=== PATIENT | female | born 1955 | race Caucasian/White ===

== ENCOUNTER → 2018-08-16 | Day surgery (SDC) | payer BC ==
[~2018-08-16] MED LIST: BUPIVACAINE HCL 0.5% INJ 30 ML VIAL INJ ONE; CEFAZOLIN SOD 1 GM/NS 50ML 50 ML IV ONE; CLARITIN-D 241 EACH PO; DESFLURANE 240 ML BTL INH ONE; DEXAMETHASONE SOD PHOS INJ 4 MG/ML VIAL ONE; FENTANYL CITRATE/PF 100MCG/2 ML INJ ONE; KETOROLAC TROMETHAMINE 30 MG/ML VIAL ONE; LIDOCAINE HCL 2% LOCAL INJ 5 ML SDV VIAL INJ ONE; MULTIVITAMINS1 EAC7 PO; ONDANSETRON HCL INJ 2MG/ML 2ML 2 MG/ML VIAL ONE; PROPOFOL IV EMULSION 10 MG/ML 20 ML VIAL ONE; SUDAFED 12 HOU120 MG PO
--- OUTSIDE RECORDS SUMMARY | 2018-08-16 05:47 | XMS REPORT | Clinical Summary ---
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 Active nortriptyline (PAMELOR) 0 10 MG capsule 7 Active rosuvastatin (CRESTOR) 10 Take 10 mg by 0 MG tablet mouth every morning. Active fexofenadine (JACOB) Take 180 mg 0 180 MG tablet by mouth every morning. 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 Office Visit Orthopedic Surgery Srikanth Douglass II, MD History of hip replacement, total, left (Primary Dx); Status post revision of total hip replacement; Peroneal nerve lesion, left 10/23/2017 Office Visit Orthopedic Surgery after 08/15/2017 Family History Medical History Relation Name Comments Deep vein thrombosis Father Stroke Father Arthritis Mother Relation Name Status Comments Father Mother Alive Social History Date Tobacco Use Types Packs/Day Years Used Never Smoker Smokeless Tobacco: Never Used Alcohol Use Drinks/Week oz/Week Comments Yes occasional Sex Assigned at Date Recorded Not on file Industry Job Start Date Occupation Not on file Not on file Not on file Travel End Travel History Travel Start No recent travel history available. Last Filed Vital Signs Not on file Plan of Treatment Health Maintenance Due Date Last Done Comments BREAST CANCER SCREENING 2005 COLON CANCER SCREENING 2005 SHINGLES VACCINES (#1) 2005 INFLUENZA VACCINE 10/24/2018 02/09/2017, 01/05/2016, 01/07/2015, Additional history exists Implants Device Identifier Shelf Expiration Date Model / Serial / Lot Implanted Type Area Manufactur er [id number] / / Screw Bone Canc 6.5x15mm [place] - Hip Joint Left: Hip DEPUY [id number] Implants ORTHO Implanted: Qty: 1 on 03/01/2017 by Srikanth Douglass II, MD [id number] / / Screw Bone Canc 6.5x30mm - Hip Joint Left: Hip DEPUY [id number] Implants ORTHO Implanted: Qty: 1 on 03/01/2017 by Srikanth Douglass II, MD [id number] / / Screw Bone Canc 6.5x20mm [place] - Hip Joint Left: Hip DEPUY [id number] Implants ORTHO-KNEE Implanted: Qty: 1 on 03/01/2017 by Srikanth Sosa II, MD 12/23/2025 [id number] / / [id number] Shell Actblr Mul-Hl W/ Gripton 50mm Hip Joint Left: Hip DEPUY [place] - [id number] Implants ORTHO-KNEE Implanted: Qty: 1 on 03/01/2017 by Srikanth Sosa II, MD 01/16/2026 [id number] / / [id number] Head Fml 03/08 Tprd 32mm +0mm Hip Joint Left: Hip LEWIS AND [employer] - [id number] Implants NEPHEW Implanted: Qty: 1 on 03/01/2017 by ORTHOPEDIC Srikanth Douglass II, MD S 12/23/2021 [id number] / / [id number] [place] Altrx Neutral 32mm X 50mm IPM Left: Hip DEPUY - [id number] IMPLANT ORTHOPAEDI Implanted: Qty: 1 on 03/01/2017 by [employer] Srikanth Douglass II, MD Procedures Comments Procedure Name Priority Date/Time Associated Diagnosis XR HIP 2-3 VIEWS LEFT Routine 10/23/2017 History of hip 4:16 PM CDT replacement, total, left after 08/15/2017 Results * XR Hip 2-3 View Left (10/23/2017 4:16 PM CDT) Specimen Narrative Performed At [facility] Well seated, satisfactory aligned total hip arthroplasty both right and left sides.No evidence of fracture, subsidence, loosening, or lysis. Performing Organization Address City/State/Zipcode Phone Number [facility] [address] [place] [address] after 08/15/2017 Insurance Type Payer Benefit Subscriber ID Effective Phone Address Plan / Dates Group PPO BCBS BCBS xxxxxxxxxxxx [id number] CHOICE resent PPO/MAYELA [employer]OSSM[employer] PPO (Home) [place] [address] [employer] Self [address] [place] [address] (Home) [place] [address] Liability Advance Directives Patient has advance care planning documents on file. For more information, tyrone e contact: Finn Hernandez [address] [place] [address]
--- OUTSIDE RECORDS SUMMARY | 2018-08-16 05:47 | XMS REPORT | Summary of Care ---
Author Organization Unknown Address Unknown Phone Unavailable Encounter HQ Encntr_alias(ZAMZAM) [id number] Date(s): 09/03/14 - 09/03/14 [facility] Outpatient Imaging [address] [phone] Discharge Disposition: Home Physician Attending: Flower Andrade MD Vital Signs No data available for this section Problem List No data available for this section Allergies, Adverse Reactions, Alerts No data available for this section Medications No data available for this section Results No data available for this section Immunizations No data available for this section Procedures No data available for this section Social History No data available for this section Assessment and Plan No data available for this section
--- OUTSIDE RECORDS SUMMARY | 2018-08-16 05:47 | XMS REPORT | Continuity of Care Document ---
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 Problem 04/30/2018 [facility] Neuropathy 08/15/2016 Problem 04/30/2018 [facility] Hip Pain 08/15/2016 Problem 04/30/2018 [facility] History of Total Hip Arthroplasty 08/15/2016 Problem 04/30/2018 [facility] Hyperlipidemia 05/18/2016 Problem 04/30/2018 [facility] Altered mental status Resolved 11/20/2014 Problem 10/25/2015 [facility] [place] HIP ARTHRITIS Active 11/04/2014 [facility] LEFT HIP DEGENERATIVE JOINT DISEASE ICD- Active 11/04/2014 [facility] Allergic Rhinitis 12/24/2013 Problem 04/30/2018 [facility] Arthropathy 12/06/2012 Problem 04/30/2018 [facility] BMI 30+ - obesity Active Problem 10/25/2015 [facility] Degenerative joint disease of hip Active Problem 10/25/2015 [facility] [place] Menopause Active Problem 10/25/2015 [facility] [place] Final: 11/23/2014 [facility] OSTEOARTHROS NOS-PELVIS Active [facility] HIP PAIN Active [facility] [place] RT HIP Active [facility] Medications Medication Details Route Status Patient Instructions Ordering Provider Order Date Source methylPREDNISolone 4 mg oral tablet 4 mg, 1 tab, Route: PO, Drug form: TAB, Bedtime, Dosing Weight 69.545, kg, Start date: 11/20/14 21:00:00, Duration: 3 doses or times, Stop date: 11/22/14 21:00:00Notes: (Same as :Medrol) Take with food No Longer Active 11/21/2014 [facility] Medrol 4 mg, 1 tab, Route: PO, Drug form: TAB, Bedtime, Start date: 11/20/14 21:00:00, Duration: 3 doses or times, Stop date: 11/20/14 21:00:00Notes: (Same as :Medrol) Take with food Inactive 11/21/2014 [facility] tramadol hydrochloride 50 MG Oral Tablet 50 mg=1 tab, PO, Q6H, PRN Pain Score 6-10, X 30 day, # 120 tab, 0 Refill(s) Active 11/20/2014 [facility] enoxaparin 30 mg/0.3 mL subcutaneous solution 30 mg=0.3 mL, SUB-Q, [id number], X 14 day, # 8 mL, 0 Refill(s) Active 11/20/2014 [facility] celecoxib 200 mg oral capsule 200 mg=1 cap, PO, Q12H, # 60 cap, 2 Refill(s) Active 11/20/2014 [facility] tramadol hydrochloride 50 MG Oral Tablet 50 mg, 1 tab, Route: PO, Drug form: TAB, Q6H, Dosing Weight 69.545, kg, PRN Pain Score 6-10, Start date: 11/20/14 12:04:00, Duration: 30 day, Stop date: 12/20/14 12:03:00Notes: Not to exceed 400mg/day. (Same As: Ultram) Inactive 11/20/2014 [facility] tramadol hydrochloride 50 MG Oral Tablet 50 mg, 1 tab, Route: PO, Drug form: TAB, Q12H, Dosing Weight 69.545, kg, PRN Pain Score 6-10, Start date: 11/19/14 11:28:00, Duration: 30 day, Stop date: 12/19/14 11:27:00Notes: Not to exceed 400mg/day. (Same As: Ultram) No Longer Active 11/19/2014 [facility] methylPREDNISolone 4 mg oral tablet 4 mg, 1 tab, Route: PO, Drug form: TAB, After Breakfast, Dosing Weight 69.545, kg, Start date: 11/19/14 8:30:00, Duration: 5 doses or times, Stop date: 11/23/14 8:30:00Notes: (Same as :Medrol) Take with food No Longer Active 11/19/2014 [facility] Medrol 4 mg, 1 tab, Route: PO, Drug form: TAB, Before Breakfast, Start date: 11/19/14 7:30:00, Duration: 5 doses or times, Stop date: 11/23/14 7:30:00Notes: (Same as :Medrol) Take with food No Longer Active 11/19/2014 [facility] methylPREDNISolone 4 mg oral tablet 8 mg, 2 tab, Route: PO, Drug form: TAB, Bedtime, Dosing Weight 69.545, kg, Start date: 11/18/14 21:00:00, Duration: 2 doses or times, Stop date: 11/19/14 21:00:00Notes: (Same as :Medrol) Take with food No Longer Active 11/19/2014 [facility] Medrol 8 mg, 2 tab, Route: PO, Drug form: TAB, Bedtime, Start date: 11/18/14 21:00:00, Duration: 2 doses or times, Stop date: 12/19/14 21:00:00Notes: (Same as :Medrol) Take with food No Longer Active 11/19/2014 [facility] tramadol hydrochloride 50 MG Oral Tablet 50 mg, 1 tab, Route: PO, Drug form: TAB, Q12H, Dosing Weight 69.545, kg, Start date: 11/18/14 18:00:00, Duration: 30 day, Stop date: 12/18/14 6:00:00Notes: Not to exceed 400mg/day. (Same As: Ultram) No Longer Active 11/18/2014 [facility] Tylenol 500 mg, 1 tab, Route: PO, Drug form: TAB, Q6H, Dosing Weight 69.545, kg, Start date: 11/18/14 18:00:00, Duration: 30 day, Stop date: 12/18/14 12:00:00Notes: Max acetaminophen 4000 mg/day (4 gm/day). (Same as: Tylenol Extra Strength) No Longer Active 11/18/2014 [facility] methylPREDNISolone 4 mg oral tablet 4 mg, 1 tab, Route: PO, Drug form: TAB, After Dinner, Dosing Weight 69.545, kg, Start date: 11/18/14 17:00:00, Duration: 3 doses or times, Stop date: 11/20/14 17:00:00Notes: (Same as :Medrol) Take with food No Longer Active 11/18/2014 [facility] Medrol 4 mg, 1 tab, Route: PO, Drug form: TAB, After Dinner, Start date: 11/18/14 17:00:00, Duration: 3 doses or times, Stop date: 11/23/14 17:00:00Notes: (Same as :Medrol) Take with food No Longer Active 11/18/2014 [facility] methylPREDNISolone 4 mg oral tablet 4 mg, 1 tab, Route: PO, Drug form: TAB, After Lunch, Dosing Weight 69.545, kg, Start date: 11/18/14 12:30:00, Duration: 4 doses or times, Stop date: 11/21/14 12:30:00Notes: (Same as :Medrol) Take with food No Longer Active 11/18/2014 [facility] Medrol 4 mg, 1 tab, Route: PO, Drug form: TAB, After Lunch, Start date: 11/18/14 12:30:00, Duration: 4 doses or times, Stop date: 11/25/14 12:30:00Notes: (Same as :Medrol) Take with food No Longer Active 11/18/2014 [facility] Morphine 3 mg, 0.3 mL, Route: IVP, Drug form: INJ, Q2H, Dosing Weight 69.545, kg, PRN Pain Score 7-10, Start date: 11/18/14 10:10:00, Duration: 2 day, Stop date: 11/20/14 10:09:00Notes: (Same as:MORPhine Sulfate) No Longer Active 11/18/2014 [facility] methylPREDNISolone 4 mg oral tablet 8 mg, 2 tab, Route: PO, Drug form: TAB, After Breakfast, Dosing Weight 69.545, kg, Start date: 11/18/14 8:30:00, Duration: 1 doses or times, Stop date: 11/18/14 8:30:00Notes: (Same as :Medrol) Take with food No Longer Active 11/18/2014 [facility] Medrol 8 mg, 2 tab, Route: PO, Drug form: TAB, Before Breakfast, Start date: 11/18/14 7:30:00, Duration: 1 doses or times, Stop date: 11/18/14 7:30:00Notes: (Same as :Medrol) Take with food Inactive 11/18/2014 [facility] Naloxone 0.04 mg, 0.1 mL, Route: IVP, Drug form: INJ, Q2MIN, Dosing Weight 69.545, kg, PRN Narcotic Reversal, Start date: 11/17/14 17:11:00, Duration: 30 day, Stop date: 12/17/14 17:10:00Notes: Same as Narcan No Longer Active 11/17/2014 [facility] Morphine 30 mg, 30 mL, Route: IV, Initial Loading Dose: 2 mg, ENTERTAINMENT MANAGER Dose: 1 mg, ENTERTAINMENT MANAGER Lockout: 10 minutes, Continuous Basal Rate: 0 mg, 4 Hour Limit (In MG): 36, Drug Form: INJ, Continuous, Pain Score 7-10, Start date: 11/17/14 17:11:00, Duration: 30 day, Stop da...Notes: Dose: Delay: Basal rate: 4hr limit: (Same as:Feliciano) No Longer Active 11/17/2014 [facility] Lovenox 30 mg, 0.3 mL, Route: SUB-Q, Drug form: INJ, [id number], Dosing Weight 69.545, kg, Start date: 11/17/14 17:00:00, Duration: 30 day, Stop date: 12/17/14 5:00:00Notes: (Same as: Lovenox) No Longer Active 11/17/2014 [facility] Morphine 30 mg, 30 mL, Route: IV, Initial Loading Dose: 2 mg, ENTERTAINMENT MANAGER Dose: 1 mg, ENTERTAINMENT MANAGER Lockout: 10 minutes, Continuous Basal Rate: 0 mg, 4 Hour Limit (In MG): 30, Drug Form: INJ, Continuous, Start date: 11/17/14 10: 30:00, Duration: 30 day, Stop date: 12/17/14 10:2...Notes: Dose: Delay: Basal rate: 4hr limit: (Same as:Rapi-Ject) Inactive 11/17/2014 [facility] Oxycodone Hydrochloride 5 MG Oral Tablet 5 mg, 1 tab, Route: PO, Drug form: TAB, Q4H, Dosing Weight 69.545, kg, PRN Pain Score 4-6, Start date: 11/17/14 10:11:00, Duration: 30 day, Stop date: 12/17/14 10:10:00Notes: (Same as: Roxicodone) No Longer Active 11/17/2014 [facility] Naloxone 0.04 mg, 0.1 mL, Route: IVP, Drug form: INJ, Q2MIN, Dosing Weight 69.545, kg, PRN Narcotic Reversal, Start date: 11/17/14 10:08:00, Duration: 30 day, Stop date: 12/17/14 10:07:00Notes: Same as Narcan No Longer Active 11/17/2014 [facility] Phenergan 12.5 mg, 0.5 mL, Route: IVPB, Drug form: INJ, Q4H, Dosing Weight 69.545, kg, PRN Nausea & Vomiting, Start date: 11/17/14 1:22:00, Stop date: 12/17/14 1:21:00Notes: Do not give IV push. (Same as: Phe nergan) No Longer Active 11/17/2014 [facility] Tranexamic Acid 700 mg, 7 mL, Route: IVPB, Drug form: INJ, ONCE, Dosing Weight 70.455, kg, Start date: 11/17/14 1:07:00, Stop date: 11/17/14 1:07:00Notes: (Same As: Cyklokapron) Inactive 11/17/2014 [facility] Zofran 4 mg, 2 mL, Route: IV, Drug form: INJ, Q8H, Dosing Weight 69.545, kg, PRN Nausea, Start date: 11/16/14 23:43:00, Duration: 30 day, Stop date: 12/16/14 23:42:00Notes: (Same as: Zofran) MEDICATION WASTE Product Size: 4 mg Product Wasted: ___ mg No Longer Active 11/17/2014 [facility] ceFAZolin (SCIP) 1 gm, 100 mL, Route: IVPB, Drug form: INJ, Q6H, Dosing Weight 69.545, kg, Start date: 11/16/14 22:00:00, Duration: 3 doses or times, Stop date: 11/17/14 10:00:00Notes: Mix with NS 100 mL ADV bag (Same As: Ancef) No Longer Active 11/17/2014 [facility] celecoxib 200 mg, 1 cap, Route: PO, Drug form: CAP, Q12H, Dosing Weight 69.545, kg, Start date: 11/16/14 21:00:00, Duration: 30 day, Stop date: 12/16/14 9:00:00Notes: NSAID. Please check indication. Not for seizure. (Same As: CeleBREX) No Longer Active 11/17/2014 [facility] Ofirmev 1,000 mg, 100 mL, Route: IV, Drug form: INJ, Q6H, Dosing Weight 69.545, kg, Priority: NOW, Start date: 11/16/14 19:47:00, Duration: 1 doses or times, Stop date: 11/16/14 19:47:00Notes: Infuse over 15 mi nutes Do not exceed 4gm/day of acetaminophen MEDICATION WASTE Product Size: 1000 mg Product Wasted: ___ mg Inactive 11/17/2014 [facility] Dilaudid 0.5 mg, 0.25 mL, Route: IV, Drug form: INJ, Q5Min, Dosing Weight 69.545, kg, Start date: 11/16/14 19:34:00, Duration: 10 doses or times, Stop date: 11/16/14 20:19:00Notes: Same as Dilaudid Inactive 11/17/2014 [facility] Morphine 30 mg, 30 mL, Route: IV, ENTERTAINMENT MANAGER Dose: 1 mg, ENTERTAINMENT MANAGER Lockout: 10 minutes, Continuous Basal Rate: 0 mg, 4 Hour Limit (In MG): 30, Drug Form: INJ, Continuous, Start date: 11/16/14 19:30:00, Duration: 30 day, Stop date: 12/16/14 19:29:00Notes: Dose: Delay: Basal rate: 4hr limit: (Same as:Liliact) No Longer Active 11/17/2014 [facility] Naloxone 0.04 mg, 0.1 mL, Route: IVP, Drug form: INJ, Q2MIN, Dosing Weight 69.545, kg, PRN Narcotic Reversal, Start date: 11/16/14 19:07:00, Duration: 30 day, Stop date: 12/16/14 19:06:00Notes: Same as Narcan No Longer Active 11/17/2014 [facility] Acetaminophen 325 MG / Hydrocodone Bitartrate 5 MG Oral Tablet 2 tab, Route: PO, Drug Form: TAB, Dosing Weight 70.455, kg, Q4H, PRN Pain Score 4-6, Start date: 11/16/14 19:07:00, Duration: 30 day, Stop date: 12/16/14 19:06:00Notes: (Same as: [place] 325/5) Do not exceed 4gm/day of acetaminophen. No Longer Active 11/17/2014 [facility] 1/2 NS 1,000 mL 1,000 mL, Rate: 125 ml/hr, Infuse over: 8 hr, Route: IV, Dosing Weight 69.545 kg, Total Volume: 1,000, Start date: 11/16/14 19:07:00, Stop date: 12/16/14 19:06:00 No Longer Active 11/17/2014 [facility] Hydralazine 10 mg, 0.5 mL, Route: IVP, Drug form: INJ, Q20Min, Dosing Weight 69.545, kg, PRN Elevated BP, Start date: 11/16/14 16:48:00, Duration: 2 doses or times, Stop date: Limited # of timesNotes: (Same as: Apresoline) Push over 5 minutes Inactive 11/16/2014 [facility] Ondansetron 4 mg, 2 mL, Route: IVP, Drug form: INJ, ONCE, Dosing Weight 69.545, kg, PRN Nausea & Vomiting, Start date: 11/16/14 16:48:00Notes: (Same as: Zofran) MEDICATION WASTE Product Size: 4 mg Product Wasted: ___ mg Inactive 11/16/2014 [facility] Metoprolol 1 mg, 1 mL, Route: IVP, Drug form: INJ, Q5Min, Dosing Weight 69.545, kg, PRN Other -See Comment, Start date: 11/16/14 16:48:00, Duration: 5 doses or times, Stop date: Limited # of timesNotes: (Same as: Lopressor) Push over 2 minutes Inactive 11/16/2014 [facility] Labetalol 10 mg, 2 mL, Route: IVP, Drug form: INJ, Q5Min, Dosing Weight 69.545, kg, PRN Elevated BP, Start date: 11/16/14 16:48:00, Duration: 5 doses or times, Stop date: Limited # of times Inactive 11/16/2014 [facility] Naloxone 0.04 mg, 0.1 mL, Route: IVP, Drug form: INJ, Q2MIN, Dosing Weight 69.545, kg, PRN Narcotic Reversal, Start date: 11/16/14 16:48:00, Duration: 8 doses or times, Stop date: Limited # of timesNotes: Same as Narcan Inactive 11/16/2014 [facility] Morphine 4 mg, 0.4 mL, Route: IVP, Drug form: INJ, Q5Min, Dosing Weight 69.545, kg, PRN Pain Score 7-10, Start date: 11/16/14 16:48:00, Duration: 3 doses or times, Stop date: Limited # of timesNotes: (Same as :MORPhine Sulfate) Inactive 11/16/2014 [facility] Flumazenil 0.2 mg, 2 mL, Route: IVP, Drug form: INJ, PRN, Dosing Weight 69.545, kg, PRN Benzodiazepine Reversal, Initial dose, Start date: 11/16/14 16:48:00, Duration: 30 day, Stop date: 12/16/14 16:47:00Notes: (Same as: Romazicon) Inactive 11/16/2014 [facility] Meperidine 12.5 mg, 0.25 mL, Route: IVP, Drug form: INJ, Q30Min, Dosing Weight 69.545, kg, PRN Other -See Comment, For shivering, Start date: 11/16/14 16:48:00, Duration: 2 doses or times, Stop date: Limited # of timesNotes: (Same as: Demerol) "Use Precaution in Elderly, Seizure disorders, and Renal impairment" Inactive 11/16/2014 [facility] Oxycodone Hydrochloride 5 MG Oral Tablet 10 mg, 2 tab, Route: PO, Drug form: TAB, Q4H, Dosing Weight 69.545, kg, PRN Pain Score 7-10, Start date: 11/16/14 16:45:00, Duration: 30 day, Stop date: 12/16/14 16:44:00Notes: (Same as: Roxicodone) Inactive 11/16/2014 [facility] Hydromorphone 0.3 mg, 0.15 mL, Route: IVP, Drug form: INJ, Q4H, Dosing Weight 69.545, kg, PRN Pain Score 7-10, Start date: 11/16/14 16:45:00, Duration: 30 day, Stop date: 12/16/14 16:44:00Notes: Same as Dilaudid No Longer Active 11/16/2014 [facility] Morphine 2 mg, 0.2 mL, Route: IVP, Drug form: INJ, Q4H, Dosing Weight 69.545, kg, PRN Pain Score 7-10, Start date: 11/16/14 16:45:00, Duration: 30 day, Stop date: 12/16/14 16:44:00Notes: (Same as:MORPhine Sulfate) Inactive 11/16/2014 [facility] Dextrose 50% Syringe 12.5 gm, Route: IVP, Dosing Weight 69.545, kg, ONCE, Start date: 11/16/14 16:01:00, Stop date: 11/16/14 16:01:00 Inactive 11/16/2014 [facility] Oxycodone Hydrochloride 5 MG Oral Tablet 5 mg, 1 tab, Route: PO, Drug form: TAB, Q4H, Dosing Weight 69.545, kg, PRN Pain Score 4-6, Start date: 11/16/14 13:33:00, Duration: 30 day, Stop date: 12/16/14 13:32:00Notes: (Same as: Roxicodone) Inactive 11/16/2014 [facility] Morphine 2 mg, 0.2 mL, Route: IVP, Drug form: INJ, Q4H, Dosing Weight 69.545, kg, PRN Pain Score 7-10, Start date: 11/16/14 13:33:00, Duration: 30 day, Stop date: 12/16/14 13:32:00Notes: (Same as:MORPhine Sulfate) No Longer Active 11/16/2014 [facility] Bupivacaine / Fentanyl Route: EPIDURAL, Continuous Rate: 6, ml/hr, Infusion site: Lumbar, ENTERTAINMENT MANAGER dose 2 mL, ENTERTAINMENT MANAGER dose lockout: 20 minutes, 1 Hour limit: 12 mL, 100, mL, Priority: NOW, Start date: 11/16/14 13:23:00, Duration: 30, day, Drug Form: INJ, Total volume: 100, mL, kg, S...Notes: Same as Marcaine-Sublimaze (Fentanyl 5 microgram/ml, Bupivacaine 0.0625%) 100 ml CADD No Longer Active 11/16/2014 [facility] Naloxone 0.1 mg, 0.25 mL, Route: IVP, Drug form: INJ, Q2MIN, Dosing Weight 69.545, kg, PRN Narcotic Reversal, Start date: 11/16/14 13:23:00, Duration: 8 doses or times, Stop date: Limited # of timesNotes: Same as Narcan No Longer Active 11/16/2014 [facility] Acetaminophen 325 MG / Hydrocodone Bitartrate 5 MG Oral Tablet [[place] 5/325] 1 tab, Route: PO, Drug Form: TAB, Dosing Weight 69.545, kg, ONCE, Start date: 11/16/14 11:04:00, Stop date: 11/16/14 11:04:00Notes: (Same as: [place] 325/5) Do not exceed 4gm/day of acetaminophen. Inactive 11/16/2014 [facility] Ancef 2 gm, 100 mL, Route: IVPB, Drug form: INJ, ONCE, Dosing Weight 69.545, kg, Start date: 11/16/14 10:58:00, Duration: 1 doses or times, Stop date: 11/16/14 10:58:00, Surgical Prophylaxis Only; For patients Special Instructions: Surgical Prophylaxis Only; For patients Notes: Same as Ancef Inactive 11/16/2014 [facility] Cefazolin 2 gm, 100 mL, Route: IVPB, Drug form: INJ, ONCALL, Dosing Weight 70.455, kg, Start date: 11/15/14 22:00:00, Duration: 1 doses or timesNotes: Same as Ancef No Longer Active 11/16/2014 [facility] Fluticasone propionate 0.05 MG/ACTUAT Metered Dose Nasal [place] fluticasone 50 mcg/actuation nasal spray,suspension Active [facility] Rosuvastatin calcium 20 MG Oral Tablet rosuvastatin 20 mg tablet Take 1 tablet every day by oral route. Active [facility] Allergies, Adverse Reactions, Alerts Substance Category Reaction Severity Reaction type Status Date Reported Comments Source Opioids - Morphine Analogues Allergy to substance 01/06/2015 [facility] Tramadol Allergy to substance 01/07/2015 [facility] Propofol Allergy to substance 02/07/2017 [facility] Immunizations Immunization Date Given Site Status Last Updated Comments Source influenza, injectable, quadrivalent, preservative free 01/02/2018 completed [facility] influenza, injectable, quadrivalent, preservative free 02/09/2017 completed [facility] influenza, injectable, quadrivalent 01/05/2016 completed [facility] zoster 11/09/2015 completed [facility] influenza, seasonal, injectable 01/07/2015 completed [facility] Hx influenza vaccine-unspecified 12/24/2013 zulema Baez [facility] Tdap 12/24/2013 completed [facility] influenza, injectable, quadrivalent, preservative free 12/24/2013 completed [facility] influenza, seasonal, injectable 12/06/2012 completed [facility] influenza, seasonal, injectable 01/30/2012 completed [facility] Hx tetanus toxoid vaccine 11/13/2009 zulema Baez [facility] Results Order Name Results Value Reference Range Date Interpretation Comments Source Urinalysis macro (dipstick) panel - Urine Color Color dark yellow 04/29/2018 [facility] Urinalysis macro (dipstick) panel - Urine Color Appearance clear 04/29/2018 [facility] Urinalysis macro (dipstick) panel - Urine Color Glucose negative 04/29/2018 [facility] Urinalysis macro (dipstick) panel - Urine Color Bilirubin negative 04/29/2018 [facility] Urinalysis macro (dipstick) panel - Urine Color Ketones negative 04/29/2018 [facility] Urinalysis macro (dipstick) panel - Urine Color Specific [place] 1.030 04/29/2018 [facility] Urinalysis macro (dipstick) panel - Urine Color Blood trace 04/29/2018 [facility] Urinalysis macro (dipstick) panel - Urine Color PH 5.5 04/29/2018 [facility] Urinalysis macro (dipstick) panel - Urine Color Protein negative 04/29/2018 [facility] Urinalysis macro (dipstick) panel - Urine Color Urobilinogen 0.2 04/29/2018 [facility] Urinalysis macro (dipstick) panel - Urine Color Nitrites negative 04/29/2018 [facility] Urinalysis macro (dipstick) panel - Urine Color Leukocytes negative 04/29/2018 [facility] CHEM PANEL eGFR 100 mL/min/1.73m2 11/19/2014 Result Comment: The eGFR is calculated using the CKD-EPI formula. In most young, healthy individuals the eGFR will be >90 mL/min/1.73m2. The eGFR declines with age. An eGFR of 60-89 may be normal in some populations, particularly the elderly, for whom the CKD-EPI formula has not been extensively validated. Use of the eGFR is not recommended in the following populations: Individuals with unstable creatinine concentrations, including patients and those with serious co-morbid conditions. Patients with extremes in muscle mass or diet. The data above are obtained from the National Kidney Disease Education Program (NKDEP) which additionally recommends that when the eGFR is used in patients with extremes of body mass index for purposes of drug dosing, the eGFR should be multiplied by the estimated BMI. [facility] CHEM PANEL Glucose Lvl 138 mg/dL 70 - 99 11/19/2014 [facility] CHEM PANEL BUN 13 mg/dL 7 - 22 11/19/2014 [facility] CHEM PANEL Creatinine Lvl 0.6 mg/dL 0.5 - 1.4 11/19/2014 [facility] CHEM PANEL Sodium Lvl 139 meq/L 135 - 145 11/19/2014 [facility] CHEM PANEL Potassium Lvl 4.4 meq/L 3.5 - 5.1 11/19/2014 [facility] CHEM PANEL CO2 27 meq/L 24 - 32 11/19/2014 [facility] CHEM PANEL Chloride Lvl 105 meq/L 95 - 109 11/19/2014 [facility] CHEM PANEL AGAP 11.4 meq/L 10.0 - 20.0 11/19/2014 [facility] CHEM PANEL Calcium Lvl 8.7 mg/dL 8.5 - 10.5 11/19/2014 [facility] HEMATOLOGY MPV 10.2 fL 7.4 - 10.4 11/19/2014 [facility] HEMATOLOGY RDW 13.1 % 11.5 - 14.5 11/19/2014 [facility] HEMATOLOGY MCHC 31.1 g/dL 32.0 - 36.0 11/19/2014 [facility] HEMATOLOGY Platelet 253 K/CMM 133 - 450 11/19/2014 [facility] HEMATOLOGY WBC X 10x3 9.7 K/CMM 3.7 - 10.4 11/19/2014 [facility] HEMATOLOGY MCV 92.4 fL 80.0 - 98.0 11/19/2014 [facility] HEMATOLOGY MCH 28.8 pg 27.0 - 31.0 11/19/2014 [facility] HEMATOLOGY RBC X 10x6 2.64 M/CMM 4.20 - 5.40 11/19/2014 [facility] HEMATOLOGY Hct 24.4 % 36.0 - 48.0 11/19/2014 [facility] HEMATOLOGY Hgb 7.6 g/dL 12.0 - 16.0 11/19/2014 [facility] HEMATOLOGY Monocytes # 0.6 K/CMM 0.0 - 0.8 11/19/2014 [facility] HEMATOLOGY Eosinophils # 0.0 K/CMM 0.0 - 0.5 11/19/2014 [facility] HEMATOLOGY Basophils # 0.0 K/CMM 0.0 - 0.2 11/19/2014 [facility] HEMATOLOGY Segs 85.9 % 45.0 - 75.0 11/19/2014 [facility] HEMATOLOGY Eosinophils 0.0 % 0.0 - 4.0 11/19/2014 [facility] HEMATOLOGY Monocytes 6.5 % 2.0 - 12.0 11/19/2014 [facility] HEMATOLOGY Lymphocytes 7.5 % 20.0 - 40.0 11/19/2014 [facility] HEMATOLOGY Basophils 0.1 % 0.0 - 1.0 11/19/2014 [facility] HEMATOLOGY Segs-Bands # 8.3 K/CMM 1.5 - 8.1 11/19/2014 [facility] HEMATOLOGY Lymphocytes # 0.7 K/CMM 1.0 - 5.5 11/19/2014 [facility] [facility] HEMATOLOGY Platelet 270 K/CMM 133 - 450 11/18/2014 [facility] HEMATOLOGY MCH 29.0 pg 27.0 - 31.0 11/18/2014 [facility] HEMATOLOGY RDW 13.7 % 11.5 - 14.5 11/18/2014 [facility] HEMATOLOGY MCHC 31.2 g/dL 32.0 - 36.0 11/18/2014 [facility] HEMATOLOGY MCV 92.9 fL 80.0 - 98.0 11/18/2014 [facility] HEMATOLOGY MPV 10.2 fL 7.4 - 10.4 11/18/2014 [facility] HEMATOLOGY Hgb 8.2 g/dL 12.0 - 16.0 11/18/2014 [facility] HEMATOLOGY Hct 26.3 % 36.0 - 48.0 11/18/2014 [facility] HEMATOLOGY RBC X 10x6 2.83 M/CMM 4.20 - 5.40 11/18/2014 [facility] HEMATOLOGY WBC X 10x3 10.0 K/CMM 3.7 - 10.4 11/18/2014 [facility] HEMATOLOGY Basophils # 0.0 K/CMM 0.0 - 0.2 11/18/2014 [facility] HEMATOLOGY Segs-Bands # 7.1 K/CMM 1.5 - 8.1 11/18/2014 [facility] HEMATOLOGY Basophils 0.1 % 0.0 - 1.0 11/18/2014 [facility] HEMATOLOGY Eosinophils 0.2 % 0.0 - 4.0 11/18/2014 [facility] HEMATOLOGY Monocytes # 1.0 K/CMM 0.0 - 0.8 11/18/2014 [facility] HEMATOLOGY Eosinophils # 0.0 K/CMM 0.0 - 0.5 11/18/2014 [facility] HEMATOLOGY Lymphocytes # 1.9 K/CMM 1.0 - 5.5 11/18/2014 [facility] HEMATOLOGY Monocytes 9.9 % 2.0 - 12.0 11/18/2014 [facility] HEMATOLOGY Lymphocytes 18.5 % 20.0 - 40.0 11/18/2014 [facility] HEMATOLOGY Segs 71.3 % 45.0 - 75.0 11/18/2014 [facility] Chest 1view DX Chest 1view DX EXAM: CHEST 1 VIEW DATE: Nov 17, 2014 09:27:00 AM INDICATION: Shortness of Breath COMPARISON: None available. FINDINGS: Heart size is normal. Pulmonary vasculature is normal. Lungs are clear. No destructive osseous lesions are identified. Radiopaque catheter projects over the left hemithorax. 11/17/2014 - - Read by: Srikanth Morales MD Dictated Date/time: 11/17/14 09:51 Electronically Signed by: Srikanth Morales MD 11/17/14 09:52 FINAL REPORT [facility] CHEM PANEL Creatinine Lvl 1.0 mg/dL 0.5 - 1.4 11/17/2014 [facility] CHEM PANEL BUN 14 mg/dL 7 - 22 11/17/2014 [facility] CHEM PANEL Potassium Lvl 5.1 meq/L 3.5 - 5.1 11/17/2014 [facility] CHEM PANEL Sodium Lvl 137 meq/L 135 - 145 11/17/2014 [facility] CHEM PANEL Glucose Lvl 128 mg/dL 70 - 99 11/17/2014 [facility] CHEM PANEL eGFR 62 mL/min/1.73m2 11/17/2014 Result Comment: The eGFR is calculated using the CKD-EPI formula. In most young, healthy individuals the eGFR will be >90 mL/min/1.73m2. The eGFR declines with age. An eGFR of 60-89 may be normal in some populations, particularly the elderly, for whom the CKD-EPI formula has not been extensively validated. Use of the eGFR is not recommended in the following populations: Individuals with unstable creatinine concentrations, including patients and those with serious co-morbid conditions. Patients with extremes in muscle mass or diet. The data above are obtained from the National Kidney Disease Education Program (NKDEP) which additionally recommends that when the eGFR is used in patients with extremes of body mass index for purposes of drug dosing, the eGFR should be multiplied by the estimated BMI. [facility] CHEM PANEL Chloride Lvl 103 meq/L 95 - 109 11/17/2014 [facility] CHEM PANEL CO2 26 meq/L 24 - 32 11/17/2014 [facility] CHEM PANEL Calcium Lvl 9.0 mg/dL 8.5 - 10.5 11/17/2014 [facility] CHEM PANEL AGAP 13.1 meq/L 10.0 - 20.0 11/17/2014 [facility] HEMATOLOGY Monocytes # 1.1 K/CMM 0.0 - 0.8 11/17/2014 [facility] HEMATOLOGY Eosinophils # 0.0 K/CMM 0.0 - 0.5 11/17/2014 [facility] HEMATOLOGY Eosinophils 0.0 % 0.0 - 4.0 11/17/2014 [facility] HEMATOLOGY Basophils 0.0 % 0.0 - 1.0 11/17/2014 [facility] HEMATOLOGY Segs-Bands # 10.4 K/CMM 1.5 - 8.1 11/17/2014 [facility] HEMATOLOGY Basophils # 0.0 K/CMM 0.0 - 0.2 11/17/2014 [facility] HEMATOLOGY Lymphocytes # 0.8 K/CMM 1.0 - 5.5 11/17/2014 [facility] HEMATOLOGY Segs 85.0 % 45.0 - 75.0 11/17/2014 [facility] HEMATOLOGY Lymphocytes 6.3 % 20.0 - 40.0 11/17/2014 [facility] HEMATOLOGY Monocytes 8.7 % 2.0 - 12.0 11/17/2014 [facility] HEMATOLOGY RDW 13.7 % 11.5 - 14.5 11/17/2014 [facility] HEMATOLOGY MPV 9.9 fL 7.4 - 10.4 11/17/2014 [facility] HEMATOLOGY Platelet 299 K/CMM 133 - 450 11/17/2014 [facility] HEMATOLOGY WBC X 10x3 12.3 K/CMM 3.7 - 10.4 11/17/2014 [facility] HEMATOLOGY MCHC 31.1 g/dL 32.0 - 36.0 11/17/2014 [facility] HEMATOLOGY MCH 28.8 pg 27.0 - 31.0 11/17/2014 [facility] HEMATOLOGY MCV 92.7 fL 80.0 - 98.0 11/17/2014 [facility] HEMATOLOGY Hct 29.3 % 36.0 - 48.0 11/17/2014 [facility] HEMATOLOGY Hgb 9.1 g/dL 12.0 - 16.0 11/17/2014 [facility] HEMATOLOGY RBC X 10x6 3.16 M/CMM 4.20 - 5.40 11/17/2014 [facility] Hip 1 view DX Hip 1 view DX EXAM: LEFT HIP SINGLE VIEW DATE: Nov 16, 2014 06:18:00 PM INDICATION: total hip arthroplasty COMPARISON: None available. FINDINGS: Placement of acetabular cup and femoral rasp for left total hip arthroplasty is noted. No fractures, destructive osseous lesions or orthopedic complications are seen. 11/16/2014 - - Read by: Srikanth Morales MD Dictated Date/time: 11/17/14 08:19 Electronically Signed by: Srikanth Morales MD 11/17/14 08:20 FINAL REPORT [facility] Digital Mammo Screening John MA Digital Mammo Screening John MA - DIGITAL MAMMO SCREENING JOHN MA BILATERAL DIGITAL SCREENING MAMMOGRAM WITH CAD: 09/03/2014 CLINICAL: Screening. Current study was evaluated with a Computer Aided Detection (CAD) system. Comparison is made to exam dated: 04/26/2010 mammogram - [facility]. There are scattered fibroglandular densities in both breasts. No significant masses, calcifications, or other findings are seen in either breast. There has been no significant interval change. IMPRESSION: NEGATIVE There is no mammographic evidence of malignancy. A 1 year screening mammogram is recommended. Juliette Beach kg/francis:09/04/2014 15:43:31 Sourcing Analyst: Julia SHUKLA)(Sabrina), [facility] This exam was dictated and interpreted by [id number] at [facility]. letter sent: Normal exam Mammogram BI-RADS: 1 Negative 09/03/2014 - - Electronically Signed by: Juliette Beach MD 09/04/14 15:43 FINAL REPORT [facility] Vital Signs Vital Sign Value Date Comments Source Diastolic (mm Hg) 81 04/29/2018 [facility] Height 58.75 04/29/2018 [facility] Systolic (mm Hg) 129 04/29/2018 [facility] Weight 149.4 04/29/2018 [facility] Heart Rate 75 11/20/2014 [facility] Temperature Oral (F) 98.6 F 11/20/2014 [facility] Respitory Rate 18 11/20/2014 [facility] Systolic (mm Hg) 124 11/20/2014 [facility] Diastolic (mm Hg) 69 11/20/2014 [facility] Heart Rate 70 11/20/2014 [facility] Temperature Oral (F) 98.3 F 11/20/2014 [facility] Systolic (mm Hg) 126 11/20/2014 [facility] Diastolic (mm Hg) 64 11/20/2014 [facility] Respitory Rate 18 11/20/2014 [facility] Respitory Rate 16 11/20/2014 [facility] Heart Rate 94 11/20/2014 [facility] Temperature Oral (F) 98.3 F 11/20/2014 [facility] Systolic (mm Hg) 109 11/20/2014 [facility] Diastolic (mm Hg) 63 11/20/2014 [facility] Weight 69.545 11/16/2014 [facility] BMI Calculated 30.97 11/16/2014 [facility] Height 149.86 cm 11/13/2014 [facility] Encounters Location Location Details Encounter Type Encounter Number Reason For Visit Attending Provider ADM Date DC Date Status Source [facility] Outpatient Imaging [facility] Outpatient [id number] Flower Andrade 09/03/2014 09/04/2014 [facility] Inpatient [id number] Allyson Solorio 11/16/2014 11/20/2014 [facility] [id number] Allyson Osmin 12/11/2014 12/23/2014 [facility] [place] [facility] [place] [facility] [id number] Allyson Osmin 12/25/2014 01/24/2015 [facility] [place] [facility] [place] [facility] Patients [id number] Allyson Osmin 01/25/2015 02/24/2015 [facility] [place] [facility] [place] [facility] [id number] Flower Andrade 09/23/2015 10/23/2015 [facility] [place] [facility] Flower Andrade MD: [id number], [address], [place] [address], Ph. [id number] Flower Andrade 04/29/2018 [facility] Procedures Procedure Code Date Perfomer Comments Source MAMMO, screening, digital, bilateral 04/29/2018 [facility] ENT Surgery (Ear, Nose, Throat) 03/26/2017 [facility] Orthopedic Surgery 03/26/2017 [facility] Neuroplasty 03/01/2017 [facility] Orthopedic Surgery 02/23/2017 [facility] Orthopedic Surgery 10/25/2015 [facility] Orthopedic Surgery 10/24/2014 [facility] Repair of elbow [id number] 03/26/1994 [facility] [place] Repair of elbow [id number] 03/26/1994 [facility]
--- OUTSIDE RECORDS SUMMARY | 2018-08-16 05:48 | XMS REPORT ---
Author Author [facility] Address Unknown Phone Unavailable Care Team Providers Care Security Door Installer Name Role Phone Unavailable Unavailable Problems This patient has no known problems. Allergies, Adverse Reactions, Alerts This patient has no known allergies or adverse reactions. Medications This patient has no known medications. Results Test Description Test Time Test Comments Text Results Atomic Results Result Comments Mammo Digital Mammography Screening CLINICAL INDICATION: This is a routine annual screening mammogram. The patient has no complaints.MODALITY: Siemens Inspiration Full Field Digital MammographyTECHNIQUE: Digital acquisition of th e breasts is performed on the ACR accredited Full Field Digital Mammography Unit. Computer Assisted Detection (CAD) is then accomplished using [employer]. Imaging of the bilateral breasts is performed.FINDINGS:COMPARISON STUDY: NoneThere are scattered fibroglandular tissues in both breasts.There are no suspicious masses, calcifications or architectural distortion in either breast.IMPRESSION:No mammographic evidence of malignancy. RECOMMENDATION: Routine annual screening mammogram in 1 year is recommended.Category: BIRADS 1 - Negative. For internal use only N:12
--- OUTSIDE RECORDS SUMMARY | 2018-08-16 05:48 | XMS REPORT | Summary of Care ---
Author Author [facility] Organization [facility] Address Unknown Phone Unavailable Encounter HQ Rashawn_laura(FIN) [id number] Date(s): 12/25/14 - 01/23/[address] [facility] [place] Discharge Disposition: Home Attending Physician: Allyson Solorio MD Vital Signs No data available for this section Problem List Condition Effective Dates Status Health Status Informant Altered mental < 11/20/14 Resolved status(Confirmed) BMI 30+ - Active obesity(Confirmed) Degenerative joint Active disease of hip(Confirmed) Menopause(Confirmed) Active Allergies, Adverse Reactions, Alerts Substance Reaction Severity Status NKDA Active Medications No data available for this section Results No data available for this section Immunizations Vaccine Date Refusal Reason Hx influenza vaccine-unspecified 12/24/13 Hx tetanus toxoid vaccine 11/13/09 Procedures Procedure Date Related Diagnosis Body Site Repair of elbow 1994 Social History Social History Type Response Exercise Exercise duration: 15. Exercise frequency: Daily. Exercise type: PHYSICAL THERAPY EXERCISES THAT DO NOT HURT THE HIP. Alcohol Never Smoking Status Never smoker; Exposure to Tobacco Smoke None; Cigarette Smoking Last 365 Days No; Reg Smoking Cessation Counseling No Assessment and Plan No data available for this section
--- OUTSIDE RECORDS SUMMARY | 2018-08-16 05:48 | XMS REPORT | Summary of Care ---
Author Author [facility] Organization [facility] Address Unknown Phone Unavailable Encounter SHAYY Landry(ZAMZAM) [id number] Date(s): 11/16/14 - 11/20/14 [facility] [address] [employer] provided by [facility] [place] [address]- Final: Discharge Disposition: Home Attending Physician: Danay Longo MD Admitting Physician: Danay Longo MD Referring Physician: Danay Longo MD Vital Signs 1 2 3 Most recent to oldest [Reference Range]: 149.86 cm (11/13/14 10:49 AM) Height 1 2 3 Most recent to oldest [Reference Range]: 98.6 DegF (11/20/14 2:53 PM) 98.3 DegF (11/20/14 11:12 AM) 98.3 DegF (11/20/14 7:34 AM) Temperature Oral [96.4-99.1 DegF] 1 2 3 Most recent to oldest [Reference Range]: 124/69 mmHg (11/20/14 2:53 PM) 126/64 mmHg (11/20/14 11:12 AM) 109/63 mmHg (11/20/14 7:34 AM) Blood Pressure [90-140/60-90 mmHg] 1 2 3 Most recent to oldest [Reference Range]: 18 BRMIN (11/20/14 2:53 PM) 18 BRMIN (11/20/14 11:12 AM) 16 BRMIN (11/20/14 7:34 AM) Respiratory Rate [14-20 BRMIN] 1 2 3 Most recent to oldest [Reference Range]: 75 bpm (11/20/14 2:53 PM) 70 bpm (11/20/14 11:12 AM) 94 bpm (11/20/14 7:34 AM) Peripheral Pulse Rate [60-100 bpm] 1 2 3 Most recent to oldest [Reference Range]: 69.545 kg (11/16/14 10:50 AM) Weight 1 2 3 Most recent to oldest [Reference Range]: 30.97 m2 (11/16/14 10:50 AM) Body Mass Index Problem List Condition Effective Dates Status Health Status Informant Altered mental < 11/20/14 Resolved status(Confirmed) BMI 30+ - Active obesity(Confirmed) Degenerative joint Active disease of hip(Confirmed) Menopause(Confirmed) Active Allergies, Adverse Reactions, Alerts Substance Reaction Severity Status NKDA Active Medications 1/2 NS 1,000 mL 1,000 mL, Rate: 125 ml/hr, Infuse over: 8 hr, Route: IV, Dosing Weight 69.545 kg , Total Volume: 1,000, Start date: 11/16/14 19:07:00, Stop date: 12/16/14 19:06: 00 Start Date: 11/16/14 Stop Date: 11/18/14 Status: Discontinued acetaminophen-hydrocodone 325 mg-5 mg oral tablet 2 tab, Route: PO, Drug Form: TAB, Dosing Weight 70.455, kg, Q4H, PRN Pain Score 4-6, Start date: 11/16/14 19:07:00, Duration: 30 day, Stop date: 12/16/14 19:06: 00 Notes: (Same as: [place] 325/5) Do not exceed 4gm/day of acetaminophen. Start Date: 11/16/14 Stop Date: 11/20/14 Status: Discontinued Ancef 2 gm, 100 mL, Route: IVPB, Drug form: INJ, ONCE, Dosing Weight 69.545, kg, Start date: 11/16/14 10:58:00, Duration: 1 doses or times, Stop date: 11/16/14 10:58: 00, Surgical Prophylaxis Only; For patients < 120 kg Special Instructions: Surgical Prophylaxis Only; For patients < 120 kg Notes: Same as Ancef Start Date: 11/16/14 Stop Date: 11/16/14 Status: Completed Bupivacaine 0.0625% + fentaNYL 5 mcg/ml Epidural CADD 100 mL Route: EPIDURAL, Continuous Rate: 6, ml/hr, Infusion site: Lumbar, [employer]ER dose 2 mL , LITH[employer]ER dose lockout: 20 minutes, 1 Hour limit: 12 mL, 100, mL, Priority: NOW, Sta rt date: 11/16/14 13:23:00, Duration: 30, day, Drug Form: INJ, Total volume: 100 , mL, kg, S... Notes: Same as Marcaine-Sublimaze(Fentanyl 5 microgram/ml, Bupivacaine 0.0625%) 100 ml CADD Start Date: 11/16/14 Stop Date: 11/18/14 Status: Discontinued ceFAZolin 2 gm, 100 mL, Route: IVPB, Drug form: INJ, ONCALL, Dosing Weight 70.455, kg, Sta rt date: 11/15/14 22:00:00, Duration: 1 doses or times Notes: Same as Ancef Start Date: 11/15/14 Stop Date: 11/16/14 Status: Completed ceFAZolin (SCIP) 1 gm, 100 mL, Route: IVPB, Drug form: INJ, Q6H, Dosing Weight 69.545, kg, Start date: 11/16/14 22:00:00, Duration: 3 doses or times, Stop date: 11/17/14 10:00:0 0 Notes: Mix with NS 100 mL ADV bag (Same As: Ancef) Start Date: 11/16/14 Stop Date: 11/17/14 Status: Completed celecoxib 200 mg, 1 cap, Route: PO, Drug form: CAP, Q12H, Dosing Weight 69.545, kg, Start date: 11/16/14 21:00:00, Duration: 30 day, Stop date: 12/16/14 9:00:00 Notes: NSAID. Please check indication. Not for seizure. (Same As: CeleBREX) Start Date: 11/16/14 Stop Date: 11/20/14 Status: Discontinued celecoxib 200 mg oral capsule 200 mg=1 cap, PO, Q12H, # 60 cap, 2 Refill(s) Start Date: 11/20/14 Stop Date: 02/18/15 Status: Ordered Dextrose 50% Syringe 12.5 gm, Route: IVP, Dosing Weight 69.545, kg, ONCE, Start date: 11/16/14 16:01: 00, Stop date: 11/16/14 16:01:00 Start Date: 11/16/14 Stop Date: 11/16/14 Status: Completed Dilaudid 0.5 mg, 0.25 mL, Route: IV, Drug form: INJ, Q5Min, Dosing Weight 69.545, kg, Sta rt date: 11/16/14 19:34:00, Duration: 10 doses or times, Stop date: 11/16/14 20: 19:00 Notes: Same as Dilaudid Start Date: 11/16/14 Stop Date: 11/16/14 Status: Completed enoxaparin 30 mg/0.3 mL subcutaneous solution 30 mg=0.3 mL, SUB-Q, [id number], X 14 day, # 8 mL, 0 Refill(s) Start Date: 11/20/14 Stop Date: 12/04/14 Status: Ordered flumazenil 0.2 mg, 2 mL, Route: IVP, Drug form: INJ, PRN, Dosing Weight 69.545, kg, PRN Jonathan zodiazepine Reversal, Initial dose, Start date: 11/16/14 16:48:00, Duration: 30 day, Stop date: 12/16/14 16:47:00 Notes: (Same as: Romazicon) Start Date: 11/16/14 Stop Date: 11/16/14 Status: Discontinued hydrALAZINE 10 mg, 0.5 mL, Route: IVP, Drug form: INJ, Q20Min, Dosing Weight 69.545, kg, PRN Elevated BP, Start date: 11/16/14 16:48:00, Duration: 2 doses or times, Stop da te: Limited # of times Notes: (Same as: Apresoline)Push over 5 minutes Start Date: 11/16/14 Stop Date: 11/16/14 Status: Discontinued hydromorphone 0.3 mg, 0.15 mL, Route: IVP, Drug form: INJ, Q4H, Dosing Weight 69.545, kg, PRN Pain Score 7-10, Start date: 11/16/14 16:45:00, Duration: 30 day, Stop date: 16:44:00 Notes: Same as Dilaudid Start Date: 11/16/14 Stop Date: 11/18/14 Status: Discontinued labetalol 10 mg, 2 mL, Route: IVP, Drug form: INJ, Q5Min, Dosing Weight 69.545, kg, PRN El evated BP, Start date: 11/16/14 16:48:00, Duration: 5 doses or times, Stop date: Limited # of times Start Date: 11/16/14 Stop Date: 11/16/14 Status: Discontinued Lovenox 30 mg, 0.3 mL, Route: SUB-Q, Drug form: INJ, [id number], Dosing Weight 69.545, kg, Start date: 11/17/14 17:00:00, Duration: 30 day, Stop date: 12/17/14 5:00:00 Notes: (Same as: Lovenox) Start Date: 11/17/14 Stop Date: 11/20/14 Status: Discontinued Medrol 4 mg, 1 tab, Route: PO, Drug form: TAB, Before Breakfast, Start date: 11/19/14 7 :30:00, Duration: 5 doses or times, Stop date: 11/23/14 7:30:00 Notes: (Same as :Medrol) Take with food Start Date: 11/19/14 Stop Date: 11/20/14 Status: Discontinued Medrol 4 mg, 1 tab, Route: PO, Drug form: TAB, Bedtime, Start date: 11/20/14 21:00:00, Duration: 3 doses or times, Stop date: 11/20/14 21:00:00 Notes: (Same as :Medrol) Take with food Start Date: 11/20/14 Stop Date: 11/20/14 Status: Canceled Medrol 8 mg, 2 tab, Route: PO, Drug form: TAB, Before Breakfast, Start date: 11/18/14 7 :30:00, Duration: 1 doses or times, Stop date: 11/18/14 7:30:00 Notes: (Same as :Medrol) Take with food Start Date: 11/18/14 Stop Date: 11/18/14 Status: Completed Medrol 8 mg, 2 tab, Route: PO, Drug form: TAB, Bedtime, Start date: 11/18/14 21:00:00, Duration: 2 doses or times, Stop date: 12/19/14 21:00:00 Notes: (Same as :Medrol) Take with food Start Date: 11/18/14 Stop Date: 11/20/14 Status: Discontinued Medrol 4 mg, 1 tab, Route: PO, Drug form: TAB, After Dinner, Start date: 11/18/14 17:00 :00, Duration: 3 doses or times, Stop date: 11/23/14 17:00:00 Notes: (Same as :Medrol) Take with food Start Date: 11/18/14 Stop Date: 11/20/14 Status: Discontinued Medrol 4 mg, 1 tab, Route: PO, Drug form: TAB, After Lunch, Start date: 11/18/14 12:30: 00, Duration: 4 doses or times, Stop date: 11/25/14 12:30:00 Notes: (Same as :Medrol) Take with food Start Date: 11/18/14 Stop Date: 11/20/14 Status: Discontinued meperidine 12.5 mg, 0.25 mL, Route: IVP, Drug form: INJ, Q30Min, Dosing Weight 69.545, kg, PRN Other -See Comment, For shivering, Start date: 11/16/14 16:48:00, Duration: 2 doses or times, Stop date: Limited # of times Notes: (Same as: Demerol) "Use Precaution in Elderly, Seizure disorders, and Re nal impairment" Start Date: 11/16/14 Stop Date: 11/16/14 Status: Discontinued methylPREDNISolone 4 mg oral tablet 4 mg, 1 tab, Route: PO, Drug form: TAB, After Breakfast, Dosing Weight 69.545, k g, Start date: 11/19/14 8:30:00, Duration: 5 doses or times, Stop date: 11/23/14 8:30:00 Notes: (Same as :Medrol) Take with food Start Date: 11/19/14 Stop Date: 11/17/14 Status: Discontinued methylPREDNISolone 4 mg oral tablet 8 mg, 2 tab, Route: PO, Drug form: TAB, Bedtime, Dosing Weight 69.545, kg, Start date: 11/18/14 21:00:00, Duration: 2 doses or times, Stop date: 11/19/14 21:00: 00 Notes: (Same as :Medrol) Take with food Start Date: 11/18/14 Stop Date: 11/17/14 Status: Discontinued methylPREDNISolone 4 mg oral tablet 4 mg, 1 tab, Route: PO, Drug form: TAB, Bedtime, Dosing Weight 69.545, kg, Start date: 11/20/14 21:00:00, Duration: 3 doses or times, Stop date: 11/22/14 21:00: 00 Notes: (Same as :Medrol) Take with food Start Date: 11/20/14 Stop Date: 11/17/14 Status: Discontinued methylPREDNISolone 4 mg oral tablet 4 mg, 1 tab, Route: PO, Drug form: TAB, After Dinner, Dosing Weight 69.545, kg, Start date: 11/18/14 17:00:00, Duration: 3 doses or times, Stop date: 11/20/14 1 7:00:00 Notes: (Same as :Medrol) Take with food Start Date: 11/18/14 Stop Date: 11/17/14 Status: Discontinued methylPREDNISolone 4 mg oral tablet 4 mg, 1 tab, Route: PO, Drug form: TAB, After Lunch, Dosing Weight 69.545, kg, S tart date: 11/18/14 12:30:00, Duration: 4 doses or times, Stop date: 11/21/14 12 :30:00 Notes: (Same as :Medrol) Take with food Start Date: 11/18/14 Stop Date: 11/17/14 Status: Discontinued methylPREDNISolone 4 mg oral tablet 8 mg, 2 tab, Route: PO, Drug form: TAB, After Breakfast, Dosing Weight 69.545, k g, Start date: 11/18/14 8:30:00, Duration: 1 doses or times, Stop date: 11/18/14 8:30:00 Notes: (Same as :Medrol) Take with food Start Date: 11/18/14 Stop Date: 11/17/14 Status: Discontinued methylPREDNISolone 4 mg oral tablet 8 mg, 2 tab, Route: PO, Drug form: TAB, Bedtime, Dosing Weight 69.545, kg, Start date: 11/18/14 21:00:00, Duration: 2 doses or times, Stop date: 11/19/14 21:00: 00 Notes: (Same as :Medrol) Take with food Start Date: 11/18/14 Stop Date: 11/17/14 Status: Discontinued methylPREDNISolone 4 mg oral tablet 4 mg, 1 tab, Route: PO, Drug form: TAB, After Dinner, Dosing Weight 69.545, kg, Start date: 11/18/14 17:00:00, Duration: 3 doses or times, Stop date: 11/20/14 1 7:00:00 Notes: (Same as :Medrol) Take with food Start Date: 11/18/14 Stop Date: 11/17/14 Status: Discontinued methylPREDNISolone 4 mg oral tablet 4 mg, 1 tab, Route: PO, Drug form: TAB, After Lunch, Dosing Weight 69.545, kg, S tart date: 11/18/14 12:30:00, Duration: 4 doses or times, Stop date: 11/21/14 12 :30:00 Notes: (Same as :Medrol) Take with food Start Date: 11/18/14 Stop Date: 11/17/14 Status: Discontinued methylPREDNISolone 4 mg oral tablet 8 mg, 2 tab, Route: PO, Drug form: TAB, After Breakfast, Dosing Weight 69.545, k g, Start date: 11/18/14 8:30:00, Duration: 1 doses or times, Stop date: 11/18/14 8:30:00 Notes: (Same as :Medrol) Take with food Start Date: 11/18/14 Stop Date: 11/17/14 Status: Discontinued methylPREDNISolone 4 mg oral tablet 4 mg, 1 tab, Route: PO, Drug form: TAB, After Breakfast, Dosing Weight 69.545, k g, Start date: 11/19/14 8:30:00, Duration: 5 doses or times, Stop date: 11/23/14 8:30:00 Notes: (Same as :Medrol) Take with food Start Date: 11/19/14 Stop Date: 11/17/14 Status: Discontinued methylPREDNISolone 4 mg oral tablet 4 mg, 1 tab, Route: PO, Drug form: TAB, Bedtime, Dosing Weight 69.545, kg, Start date: 11/20/14 21:00:00, Duration: 3 doses or times, Stop date: 11/22/14 21:00: 00 Notes: (Same as :Medrol) Take with food Start Date: 11/20/14 Stop Date: 11/17/14 Status: Discontinued metoprolol 1 mg, 1 mL, Route: IVP, Drug form: INJ, Q5Min, Dosing Weight 69.545, kg, PRN Oth er -See Comment, Start date: 11/16/14 16:48:00, Duration: 5 doses or times, Stop date: Limited # of times Notes: (Same as: Lopressor)Push over 2 minutes Start Date: 11/16/14 Stop Date: 11/16/14 Status: Discontinued morphine 1 mg/ml L[employer]ER (30 mg/30 mL) INJ Syringe 30 mg 30 mg, 30 mL, Route: IV, Initial Loading Dose: 2 mg, [employer]ER Dose: 1 mg, L[employer]ER Lockou t: 10 minutes, Continuous Basal Rate: 0 mg, 4 Hour Limit (In MG): 36, Drug Form: INJ, Continuous, Pain Score 7-10, Start date: 11/17/14 17:11:00, Duration: 30 d ay, Stop da... Notes: Dose: Delay: Basal rate: 4hr limit:( Same as:Feliciano) Start Date: 11/17/14 Stop Date: 11/18/14 Status: Discontinued morphine 1 mg/ml L[employer]ONE [employer]ER (30 mg/30 mL) INJ Syringe 30 mg 30 mg, 30 mL, Route: IV, [employer]ER Dose: 1 mg, L[employer]ER Lockout: 10 minutes, Continuous Ba rafal Rate: 0 mg, 4 Hour Limit (In MG): 30, Drug Form: INJ, Continuous, Start date : 11/16/14 19:30:00, Duration: 30 day, Stop date: 12/16/14 19:29:00 Notes: Dose: Delay: Basal rate: 4hr limit:( Same as:Bharat-Nela) Start Date: 11/16/14 Stop Date: 11/18/14 Status: Discontinued morphine 1 mg/ml L[employer] M[employer]ER (30 mg/30 mL) INJ Syringe 30 mg 30 mg, 30 mL, Route: IV, Initial Loading Dose: 2 mg, [employer]ER Dose: 1 mg, L[employer]ER Lockou t: 10 minutes, Continuous Basal Rate: 0 mg, 4 Hour Limit (In MG): 30, Drug Form: INJ, Continuous, Start date: 11/17/14 10:30:00, Duration: 30 day, Stop date: 10:2... Notes: Dose: Delay: Basal rate: 4hr limit:( Same as:Bharat-Nela) Start Date: 11/17/14 Stop Date: 11/17/14 Status: Discontinued morphine Sulfate 2 mg, 0.2 mL, Route: IVP, Drug form: INJ, Q4H, Dosing Weight 69.545, kg, PRN Ismael n Score 7-10, Start date: 11/16/14 16:45:00, Duration: 30 day, Stop date: 16:44:00 Notes: (Same as:MORPhine Sulfate) Start Date: 11/16/14 Stop Date: 11/16/14 Status: Deleted morphine Sulfate 2 mg, 0.2 mL, Route: IVP, Drug form: INJ, Q4H, Dosing Weight 69.545, kg, PRN Ismael n Score 7-10, Start date: 11/16/14 13:33:00, Duration: 30 day, Stop date: 13:32:00 Notes: (Same as:MORPhine Sulfate) Start Date: 11/16/14 Stop Date: 11/18/14 Status: Discontinued morphine Sulfate 3 mg, 0.3 mL, Route: IVP, Drug form: INJ, Q2H, Dosing Weight 69.545, kg, PRN Ismael n Score 7-10, Start date: 11/18/14 10:10:00, Duration: 2 day, Stop date: 5 10:09:00 Notes: (Same as:MORPhine Sulfate) Start Date: 11/18/14 Stop Date: 11/20/14 Status: Completed morphine Sulfate 4 mg, 0.4 mL, Route: IVP, Drug form: INJ, Q5Min, Dosing Weight 69.545, kg, PRN P ain Score 7-10, Start date: 11/16/14 16:48:00, Duration: 3 doses or times, Stop date: Limited # of times Notes: (Same as:MORPhine Sulfate) Start Date: 11/16/14 Stop Date: 11/16/14 Status: Discontinued morphine Sulfate 2 mg, 0.2 mL, Route: IVP, Drug form: INJ, Q5Min, Dosing Weight 69.545, kg, PRN P ain Score 4-6, Start date: 11/16/14 16:48:00, Duration: 5 doses or times, Stop d ate: Limited # of times Notes: (Same as:MORPhine Sulfate) Start Date: 11/16/14 Stop Date: 11/16/14 Status: Discontinued naloxone 0.04 mg, 0.1 mL, Route: IVP, Drug form: INJ, Q2MIN, Dosing Weight 69.545, kg, CT N Narcotic Reversal, Start date: 11/16/14 16:48:00, Duration: 8 doses or times, Stop date: Limited # of times Notes: Same as Narcan Start Date: 11/16/14 Stop Date: 11/16/14 Status: Discontinued naloxone 0.04 mg, 0.1 mL, Route: IVP, Drug form: INJ, Q2MIN, Dosing Weight 69.545, kg, CT N Narcotic Reversal, Start date: 11/17/14 17:11:00, Duration: 30 day, Stop date: 12/17/14 17:10:00 Notes: Same as Narcan Start Date: 11/17/14 Stop Date: 11/20/14 Status: Discontinued naloxone 0.1 mg, 0.25 mL, Route: IVP, Drug form: INJ, Q2MIN, Dosing Weight 69.545, kg, CT N Narcotic Reversal, Start date: 11/16/14 13:23:00, Duration: 8 doses or times, Stop date: Limited # of times Notes: Same as Narcan Start Date: 11/16/14 Stop Date: 11/18/14 Status: Discontinued naloxone 0.04 mg, 0.1 mL, Route: IVP, Drug form: INJ, Q2MIN, Dosing Weight 69.545, kg, CT N Narcotic Reversal, Start date: 11/16/14 19:07:00, Duration: 30 day, Stop date: 12/16/14 19:06:00 Notes: Same as Narcan Start Date: 11/16/14 Stop Date: 11/18/14 Status: Discontinued naloxone 0.04 mg, 0.1 mL, Route: IVP, Drug form: INJ, Q2MIN, Dosing Weight 69.545, kg, CT N Narcotic Reversal, Start date: 11/17/14 10:08:00, Duration: 30 day, Stop date: 12/17/14 10:07:00 Notes: Same as Narcan Start Date: 11/17/14 Stop Date: 11/18/14 Status: Discontinued [place] 5/325 oral tablet 1 tab, Route: PO, Drug Form: TAB, Dosing Weight 69.545, kg, ONCE, Start date: 11:04:00, Stop date: 11/16/14 11:04:00 Notes: (Same as: [place] 325/5) Do not exceed 4gm/day of acetaminophen. Start Date: 11/16/14 Stop Date: 11/16/14 Status: Completed Ofirmev 1,000 mg, 100 mL, Route: IV, Drug form: INJ, Q6H, Dosing Weight 69.545, kg, Prio rity: NOW, Start date: 11/16/14 19:47:00, Duration: 1 doses or times, Stop date: 11/16/14 19:47:00 Notes: Infuse over 15 minutesDo not exceed 4gm/day of acetaminophen MEDICAT ION WASTE Product Size: 1000 mgProduct Wasted: ___ mg Start Date: 11/16/14 Stop Date: 11/16/14 Status: Completed ondansetron 4 mg, 2 mL, Route: IVP, Drug form: INJ, ONCE, Dosing Weight 69.545, kg, PRN Naus ea & Vomiting, Start date: 11/16/14 16:48:00 Notes: (Same as: Donna) MEDICATION WASTE Product Size: 4 mgProduct Was sabrina: ___ mg Start Date: 11/16/14 Stop Date: 11/16/14 Status: Discontinued oxyCODONE 5 mg immediate release 10 mg, 2 tab, Route: PO, Drug form: TAB, Q4H, Dosing Weight 69.545, kg, PRN Pain Score 7-10, Start date: 11/16/14 16:45:00, Duration: 30 day, Stop date: 12/16/14 16:44:00 Notes: (Same as: Roxicodone) Start Date: 11/16/14 Stop Date: 11/16/14 Status: Deleted oxyCODONE 5 mg immediate release 5 mg, 1 tab, Route: PO, Drug form: TAB, Q4H, Dosing Weight 69.545, kg, PRN Pain Score 4-6, Start date: 11/16/14 16:45:00, Duration: 30 day, Stop date: 12/16/14 16:44:00 Notes: (Same as: Roxicodone) Start Date: 11/16/14 Stop Date: 11/18/14 Status: Discontinued oxyCODONE 5 mg immediate release 5 mg, 1 tab, Route: PO, Drug form: TAB, Q4H, Dosing Weight 69.545, kg, PRN Pain Score 4-6, Start date: 11/16/14 13:33:00, Duration: 30 day, Stop date: 12/16/14 13:32:00 Notes: (Same as: Roxicodone) Start Date: 11/16/14 Stop Date: 11/16/14 Status: Deleted oxyCODONE 5 mg immediate release 10 mg, 2 tab, Route: PO, Drug form: TAB, Q4H, Dosing Weight 69.545, kg, PRN Pain Score 7-10, Start date: 11/16/14 13:33:00, Duration: 30 day, Stop date: 12/16/14 13:32:00 Notes: (Same as: Roxicodone) Start Date: 11/16/14 Stop Date: 11/18/14 Status: Discontinued oxyCODONE 5 mg immediate release 5 mg, 1 tab, Route: PO, Drug form: TAB, Q4H, Dosing Weight 69.545, kg, PRN Pain Score 4-6, Start date: 11/17/14 10:11:00, Duration: 30 day, Stop date: 12/17/14 10:10:00 Notes: (Same as: Roxicodone) Start Date: 11/17/14 Stop Date: 11/20/14 Status: Discontinued Phenergan + Sodium Chloride 0.9% IV 50 mL 12.5 mg, 0.5 mL, Route: IVPB, Drug form: INJ, Q4H, Dosing Weight 69.545, kg, PRN Nausea & Vomiting, Start date: 11/17/14 1:22:00, Stop date: 12/17/14 1:21:00 Notes: Do not give IV push. (Same as: Phenergan) Start Date: 11/17/14 Stop Date: 11/20/14 Status: Discontinued tramadol 50 mg oral tablet 50 mg, 1 tab, Route: PO, Drug form: TAB, Q6H, Dosing Weight 69.545, kg, PRN Pain Score 6-10, Start date: 11/20/14 12:04:00, Duration: 30 day, Stop date: 12/20/14 12:03:00 Notes: Not to exceed 400mg/day. (Same As: Ultram) Start Date: 11/20/14 Stop Date: 11/20/14 Status: Discontinued tramadol 50 mg oral tablet 50 mg, 1 tab, Route: PO, Drug form: TAB, Q12H, Dosing Weight 69.545, kg, Start d ate: 11/18/14 18:00:00, Duration: 30 day, Stop date: 12/18/14 6:00:00 Notes: Not to exceed 400mg/day. (Same As: Ultram) Start Date: 11/18/14 Stop Date: 11/19/14 Status: Voided With Results tramadol 50 mg oral tablet 50 mg=1 tab, PO, Q6H, PRN Pain Score 6-10, X 30 day, # 120 tab, 0 Refill(s) Start Date: 11/20/14 Stop Date: 12/20/14 Status: Ordered tramadol 50 mg oral tablet 50 mg, 1 tab, Route: PO, Drug form: TAB, Q12H, Dosing Weight 69.545, kg, PRN Ismael n Score 6-10, Start date: 11/19/14 11:28:00, Duration: 30 day, Stop date: 11:27:00 Notes: Not to exceed 400mg/day. (Same As: Ultram) Start Date: 11/19/14 Stop Date: 11/20/14 Status: Discontinued tranexamic acid + Sodium Chloride 0.9% IV 100 mL 700 mg, 7 mL, Route: IVPB, Drug form: INJ, ONCE, Dosing Weight 70.455, kg, Start date: 11/17/14 1:07:00, Stop date: 11/17/14 1:07:00 Notes: (Same As: Cyklokapron) Start Date: 11/17/14 Stop Date: 11/17/14 Status: Completed Tylenol 500 mg, 1 tab, Route: PO, Drug form: TAB, Q6H, Dosing Weight 69.545, kg, Start d ate: 11/18/14 18:00:00, Duration: 30 day, Stop date: 12/18/14 12:00:00 Notes: Max acetaminophen 4000 mg/day (4 gm/day). (Same as: Tylenol Extra Streng th) Start Date: 11/18/14 Stop Date: 11/20/14 Status: Discontinued Zofran 4 mg, 2 mL, Route: IV, Drug form: INJ, Q8H, Dosing Weight 69.545, kg, PRN Nausea , Start date: 11/16/14 23:43:00, Duration: 30 day, Stop date: 12/16/14 23:42:00 Notes: (Same as: Zofran) MEDICATION WASTE Product Size: 4 mgProduct Was sabrina: ___ mg Start Date: 11/16/14 Stop Date: 11/20/14 Status: Discontinued Results ELECTROLYTES 1 2 3 Most recent to oldest [Reference Range]: 139 mEq/L (11/19/14 3:49 AM) 137 mEq/L (11/17/14 4:00 AM) Sodium Lvl [135-145 mEq/L] 4.4 mEq/L (11/19/14 3:49 AM) 5.1 mEq/L (11/17/14 4:00 AM) Potassium Lvl [3.5-5.1 mEq/L] 105 mEq/L (11/19/14 3:49 AM) 103 mEq/L (11/17/14 4:00 AM) Chloride Lvl [95-109 mEq/L] 27 mEq/L (11/19/14 3:49 AM) 26 mEq/L (11/17/14 4:00 AM) CO2 [24-32 mEq/L] 11.4 mEq/L (11/19/14 3:49 AM) 13.1 mEq/L (11/17/14 4:00 AM) AGAP [10.0-20.0 mEq/L] CHEM PANEL 1 2 3 Most recent to oldest [Reference Range]: 0.6 mg/dL (11/19/14 3:49 AM) 1.0 mg/dL (11/17/14 4:00 AM) Creatinine Lvl [0.5-1.4 mg/dL] 100 mL/min/1.73m2 1 *NA* (11/19/14 3:49 AM) 62 mL/min/1.73m2 2 *NA* (11/17/14 4:00 AM) eGFR 13 mg/dL (11/19/14 3:49 AM) 14 mg/dL (11/17/14 4:00 AM) BUN [7-22 mg/dL] 138 mg/dL *HI* (11/19/14 3:49 AM) 128 mg/dL *HI* (11/17/14 4:00 AM) Glucose Lvl [70-99 mg/dL] 8.7 mg/dL (11/19/14 3:49 AM) 9.0 mg/dL (11/17/14 4:00 AM) Calcium Lvl [8.5-10.5 mg/dL] 1Result Comment: The eGFR is calculated using the [...] from the National Kid[employer] Education Program ( NKDEP) which additionally recommends that when the eGFR is used in patients with extremes of body mass index for purposes of drug dosing, the eGFR should be mul tiplied by the estimated BMI. 2Result Comment: The eGFR is calculated using the [...] from the [employer] ( [employer]) which additionally recommends that when the eGFR is used in patients with extremes of body mass index for purposes of drug dosing, the eGFR should be mul tiplied by the estimated BMI. HEMATOLOGY 1 2 3 Most recent to oldest [Reference Range]: 9.7 K/CMM (11/19/14 3:49 AM) 10.0 K/CMM (11/18/14 3:28 AM) 12.3 K/CMM *HI* (11/17/14 4:00 AM) WBC [3.7-10.4 K/CMM] 2.64 M/CMM *LOW* (11/19/14 3:49 AM) 2.83 M/CMM *LOW* (11/18/14 3:28 AM) 3.16 M/CMM *LOW* (11/17/14 4:00 AM) RBC [4.20-5.40 M/CMM] 7.6 g/dL *LOW* (11/19/14 3:49 AM) 8.2 g/dL *LOW* (11/18/14 3:28 AM) 9.1 g/dL *LOW* (11/17/14 4:00 AM) Hgb [12.0-16.0 g/dL] 24.4 % *LOW* (11/19/14 3:49 AM) 26.3 % *LOW* (11/18/14 3:28 AM) 29.3 % *LOW* (11/17/14 4:00 AM) Hct [36.0-48.0 %] 92.4 fL (11/19/14 3:49 AM) 92.9 fL (11/18/14 3:28 AM) 92.7 fL (11/17/14 4:00 AM) MCV [80.0-98.0 fL] 28.8 pg (11/19/14 3:49 AM) 29.0 pg (11/18/14 3:28 AM) 28.8 pg (11/17/14 4:00 AM) MCH [27.0-31.0 pg] 31.1 g/dL *LOW* (11/19/14 3:49 AM) 31.2 g/dL *LOW* (11/18/14 3:28 AM) 31.1 g/dL *LOW* (11/17/14 4:00 AM) MCHC [32.0-36.0 g/dL] 13.1 % (11/19/14 3:49 AM) 13.7 % (11/18/14 3:28 AM) 13.7 % (11/17/14 4:00 AM) RDW [11.5-14.5 %] 253 K/CMM (11/19/14 3:49 AM) 270 K/CMM (11/18/14 3:28 AM) 299 K/CMM (11/17/14 4:00 AM) Platelet [133-450 K/CMM] 10.2 fL (11/19/14 3:49 AM) 10.2 fL (11/18/14 3:28 AM) 9.9 fL (11/17/14 4:00 AM) MPV [7.4-10.4 fL] 85.9 % *HI* (11/19/14 3:49 AM) 71.3 % (11/18/14 3:28 AM) 85.0 % *HI* (11/17/14 4:00 AM) Segs [45.0-75.0 %] 7.5 % *LOW* (11/19/14 3:49 AM) 18.5 % *LOW* (11/18/14 3:28 AM) 6.3 % *LOW* (11/17/14 4:00 AM) Lymphocytes [20.0-40.0 %] 6.5 % (11/19/14 3:49 AM) 9.9 % (11/18/14 3:28 AM) 8.7 % (11/17/14 4:00 AM) Monocytes [2.0-12.0 %] 0.0 % (11/19/14 3:49 AM) 0.2 % (11/18/14 3:28 AM) 0.0 % (11/17/14 4:00 AM) Eosinophils [0.0-4.0 %] 0.1 % (11/19/14 3:49 AM) 0.1 % (11/18/14 3:28 AM) 0.0 % (11/17/14 4:00 AM) Basophils [0.0-1.0 %] 8.3 K/CMM *HI* (11/19/14 3:49 AM) 7.1 K/CMM (11/18/14 3:28 AM) 10.4 K/CMM *HI* (11/17/14 4:00 AM) Segs-Bands # [1.5-8.1 K/CMM] 0.7 K/CMM *LOW* (11/19/14 3:49 AM) 1.9 K/CMM (11/18/14 3:28 AM) 0.8 K/CMM *LOW* (11/17/14 4:00 AM) Lymphocytes # [1.0-5.5 K/CMM] 0.6 K/CMM (11/19/14 3:49 AM) 1.0 K/CMM *HI* (11/18/14 3:28 AM) 1.1 K/CMM *HI* (11/17/14 4:00 AM) Monocytes # [0.0-0.8 K/CMM] 0.0 K/CMM (11/19/14 3:49 AM) 0.0 K/CMM (11/18/14 3:28 AM) 0.0 K/CMM (11/17/14 4:00 AM) Eosinophils # [0.0-0.5 K/CMM] 0.0 K/CMM (11/19/14 3:49 AM) 0.0 K/CMM (11/18/14 3:28 AM) 0.0 K/CMM (11/17/14 4:00 AM) Basophils # [0.0-0.2 K/CMM] Immunizations Vaccine Date Refusal Reason Hx influenza [...] Smoking Cessation Counseling No Assessment and Plan Extracted from: Title: Hospitalist Progress Note Author: Sourav Trejo MD Date: 11/20/14 Assessment/Plan This is a 59 year old woman with history of degenerative joint disease and avascular necrosis of the left hip status post left total hip arthroplasty. 1.DJD/AVN of L hip Doing well post operatively. Working with physical therapy. Able to bear weight on bilateral lower extremitiies. Pain well controlled. Will continue tramadol scheduled q12 hours, with q12 hour PRN tramadol for interval periods, if needed. Patient adverse to strong narcotic medications, therefore will avoid. 2.Acute postoperative pain of hip As stated above, pain well controlled on present regimen 3.Sinus tachycardia Resolved. Likely secondary to poorly controlled pain and element of anxiety 5.Low blood pressure, not hypotension Blood pressure has responded to increased fluid. Likely a component of hypovolemia. Monitor as needed 7.Anemia due to acute blood loss Stable, will benefit from iron supplementation on discharge Orders: tramadol, 50 mg, 1 tab, Route: PO, Drug form: TAB, Q6H, Dosing Weight 69.545, kg, PRN Pain Score 6-10, Start date: 11/20/14 12:04:00, Duration: 30 day, Stop date: 12/20/14 12:03:00 Prophylaxis Lovenox per primary service recommendations. Disposition Thank you for allowing us to participate in the care of your patient. We will continue to follow this patient along with you. If you have any questions, please do not hesitate to call [phone]. 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 Longo this afternoon. 1.DJD/AVN of L hip L JOAO this afternoon w/ Dr. Longo - plan per primary - post-op protocol w/ IS/O2 and IVF - Abx per SCIP - PT to eval post-op - post-op CBC/BMP in AM 2.Acute postoperative pain of hip defer immediate post-op mgmt to anesthesia and ortho - will follow and adjust regimen prn - give norco x1 pre-op as currently uncomfortable and several hours until OR 3.Sinus tachycardia asymptomatic, likely 2/2 anxiety and pain - follow with vitals 4.Allergic rhinitis no meds currently, will have prn Leukocytosis - no evidence of infxn, reassuring differential - UA negative - will follow with AML Orders: acetaminophen-hydrocodone, 1 tab, Route: PO, Drug Form: TAB, Dosing Weight 69.545, kg, ONCE, Start date: 11/16/14 11:04:00, Stop date: 11/16/14 11:04:00 Prophylaxis anticipate enox per primary Disposition home in 2-3 MNs FULL CODE [facility] IM hospitalist team is consulting. Please call [phone] with any questions. Addendum Pt to have epidural catheter; APMS to follow. Defer pain mgmt to them post-operatively. by Maged Padron MD on 11/16/2014 17:04 Extracted from: Title: Clinical Document Author: Danay Longo MD Date: 11/15/14 HISTORY & PHYSICAL EXAMINATION NAME: MAE BAI DATE: NOVEMBER 16, 2014 [facility] RECEPTIONIST: DANAY LONGO M.D. The patient is a 59-year-old white female reports having many years of left hip pain. She reports having a ballet accident at the age of 18 and progressive pain over years. Most recently, she reports having significant pain over the last several weeks to a month with increased activities and activities of daily living. She reports having pain in the groin area with activities. She also reports having pain that radiates into the thigh and knee. She reports that she has been limping significantly for the last three years. She reports being evaluated by her primary care physician who treated her with diclofenac. She reports being evaluated by an orthopedic surgeon who treated her with meloxicam and naproxen. She did have radiographs that demonstrated evidence of significant degenerative changes in the left hip joint. She reports having significant pain with activities of daily living that interfere with activities. She reports having difficulty sleeping, sitting and walking. She reports having morning stiffness. She also reports having progressive lower back and thigh pain secondary to her gait abnormality. She has failed conservative management and reports for surgical intervention. PAST MEDICAL HISTORY: She denies heart disease, lung disease, liver disease, peptic ulcer disease, diabetes or seizures. PAST SURGICAL HISTORY: 4 previous sections in 1981, 1982, 1984 and 1986. ALLERGIES: No known drug allergies. MEDICATIONS: Naproxen, acetaminophen, Sudafed and Caltrate. PHYSICAL EXAMINATION In general, the patient is a well developed, well nutured white female in no apparent distress. She is alert and oriented times three. She is 4 11 tall and weighs approximately 155 pounds. HEENT: The head is atraumatic and normocephalic. Pupils are equally round and reactive to both light and accommodation. Extraocular muscles are intact. Neck: Supple. Chest: Clear to auscultation bilaterally. Heart: Regular rate and rhythm. Abdomen: Soft, nontender and nondistended. Extremities: On physical examination, the left lower extremity demonstrates significant limitation of motion. She demonstrate 0 of internal rotation and 5 of external rotation with growing pain. The left lower extremity is neurovascular intact. She moves her knee and foot easily. Capillary refill is less than two seconds. Neurologic: Nonfocal. IMPRESSION: Left hip arthritis. PLAN: Left total hip arthroplasty. Danay Longo M.D.
--- OUTSIDE RECORDS SUMMARY | 2018-08-16 05:48 | XMS REPORT | Summary of Care ---
Author Author [facility] [employer] Organization [facility] Address Unknown Phone Unavailable Encounter HQ Shreyar_laura(FIN) [id number] Date(s): 12/11/14 - 12/23/14 [facility] [place] Discharge Disposition: Home Attending [...]
--- OUTSIDE RECORDS SUMMARY | 2018-08-16 05:48 | XMS REPORT | Summary of Care ---
Author Author [facility] [employer] Organization [facility] [place] Address Unknown Phone Unavailable Encounter HQ Shreyar_laura(FIN) [id number] Date(s): 01/25/15 - 02/23/15 [facility] [place] Discharge Disposition: Home Attending [...]
--- OUTSIDE RECORDS SUMMARY | 2018-08-16 05:48 | XMS REPORT | Encounter Summary ---
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 Flower Andrade 3 [phone] Flower Andrade MD 3 [phone] Aryan Cintron MD 124 [phone] Celine Ignacio MD 129 [phone] Jaylan Pinedo MD 130 [phone] Srikanth Douglass MD 130 [phone] Michael Fernandes MD 226 [phone] Reason for Visit Annual physical - female Instructions 1. Colonoscopy refused 2. Adult health examination CBC w/ auto diff CMP, serum or plasma lipid panel, serum TSH, serum or plasma urinalysis, dipstick 3. Screening for malignant neoplasm of cervix pap, IG + HPV mRNA E6/E7 4. Sciatica chiropractic referral 5. Screening for malignant neoplasm of breast MAMMO, screening, digital, bilateral 6. Hyperlipidemia rosuvastatin 20 mg tablet Discussion Note: None recorded. Patient educational handouts: No information available. Plan of Care Reminders Provider Appointments None recorded. Lab Pap, IG + HPV mRNA E6/E7 04/29/2018 [facility] CBC W/ Auto Diff 04/29/2018 [facility] CMP, Serum or Plasma 04/29/2018 [facility] Lipid Panel, Serum 04/29/2018 [facility] TSH, Serum or Plasma 04/29/2018 [facility] Urinalysis, Dipstick 04/29/2018 [facility] ([facility]) [facility] Chiropractic Referral 04/29/2018 Willie Lowery Npi# [id number] Procedures None recorded. Surgeries None recorded. Imaging MAMMO, Screening, Digital, Bilateral 04/29/2018 [facility]y Medications Name Start Date fluticasone 50 mcg/actuation nasal spray,suspension rosuvastatin 20 mg tablet Take 1 tablet every day by oral route. Medications Administered None recorded. Vitals Height Weight BMI Blood Pressure 4 ft 10.75 in 149.4 lbs 30.4 kg/m2 129/81 mm[Hg] Lab Results Date Name Specimen Result Interpretation Description Value Range Status Address 04/29/2018 Urinalysis, Dipstick Color Color dark yellow [facility] ([facility]: [address], [place] Color Appearance clear [facility] ([facility]: [address], [place] Color Glucose negative [facility]: [address], [place] Color Bilirubin negative [facility]: [address], [place] Color Ketones negative [facility] ([facility]: [address], [place] Color Specific [place] 1.030 [facility] ([facility]: [address], [place] Color Blood trace [facility] ([facility]: [address], [place] Color PH 5.5 [facility]: [address], [place] Color Protein negative [facility]: [address], [place] Color Urobilinogen 0.2 [facility] ([facility]: [address], [place] Color Nitrites negative [facility]: [address], [place] Color Leukocytes negative [facility] ([facility]: [address], [place] Color Note [facility] ([facility]: [address], [place] Allergies Code Code System Name Reaction Severity Status Onset Opioids - Morphine Analogues Active 01/06/2015 Tramadol Active 01/07/2015 8782 RxNorm Propofol Active 02/07/2017 Problems Name Status Onset Date Source Arthropathy Active 12/06/2012 Allergic Rhinitis Active 12/24/2013 Hyperlipidemia Active 05/18/2016 Neuropathy Active 08/15/2016 External Hip Pain Active 08/15/2016 External History of Total Hip Arthroplasty Active 08/15/2016 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 [address] [place] [address] (Work [address]) Vaccine List Vaccine Type influenza, injectable, quadrivalent 01/05/20160.5 mL influenza, injectable, quadrivalent, preservative free 12/24/20130.5 mL 02/09/20170.5 mL 01/02/2018 influenza, seasonal, injectable 01/30/20120.5 mL 12/06/20120.5 mL 01/07/20151 mL Tdap 12/24/2013 zoster 11/09/20150.65 mL Social History Smoking Status Never Smoker Past Encounters 04/29/2018 Colonoscopy Refused; Adult Health Examination; Screening for Malignant Neoplasm of Cervix; Sciatica; Screening for Malignant Neoplasm of Breast; Hyperlipidemia Flower Andrade MD: [address] [facility], [address], [place] [address], Ph. History of Present Illness Note:Wants to restart the topical pain reliever on foot and ankle - last prescribed in 2015. [facility] pharmacy. Review of [facility] ROS Reported By: Patient Constitutional: Constitutional: no fatigue Skin: Skin: no abnormal moles, no rashes Respiratory: Respiratory: no dyspnea / shortness of breath Cardiovascular: Cardiovascular: no palpitations; no edema Gastrointestinal: Gastrointestinal: no nausea, no vomiting, no abdominal pain Genitourinary: Genitourinary: no trouble urinating, no incontinence Endocrine: Menopausal: no menopausal symptoms Neurological: Neurologic: no headaches Physical Exam None recorded.
--- OUTSIDE RECORDS SUMMARY | 2018-08-16 05:48 | XMS REPORT | Summary of Care ---
Author Author [facility] [employer] Organization [facility] Address Unknown Phone Unavailable Encounter HQ Rashawn_laura(ZAMZAM) [id number] Date(s): 09/23/15 - 10/22/15 [facility] [place] Discharge Disposition: Home or Self Care Attending Physician: Flower Andrade MD Vital Signs No data [...] No data available for this section Immunizations Given and Recorded Vaccine Date Status Refusal Reason Hx influenza vaccine-unspecified 12/24/13 Given Hx tetanus toxoid vaccine 11/13/09 Given Procedures Procedure Date Related Diagnosis Body Site [...]
--- NOTE | 2018-08-16 08:03 | Operative Report ---
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 PLANNED PROCEDURE: Left release of entrapped medial dorsal cutaneous nerve. SURGEON: Dr. Stroud, [facility] system. However, the DP ANESTHESIA: General with a postoperative block consisting of 10 mL of 0.5% Marcaine plain mixed with 2 mL of dexamethasone phosphate. HEMOSTASIS: Pneumatic thigh tourniquet set at 350 mmHg for a total time approximately 30 minutes. PROCEDURE NOTE: Attention was directed to the dorsal anterior aspect of the patient's left ankle where a preoperative zackary was made at the most painful area while the patient was still awake. The incision was made directly over this area in the central anterior aspect of the left ankle. The incision was carried to subcutaneous tissues it from deeper underling structures. All vital and neurovascular structures were identified and retracted medially and laterally and all bleeders were cauterized or ligated as deemed necessary. At this time, the dissection was carried down through the level of the extensor retinaculum to allow for good visualization of the medial dorsal cutaneous nerve. It was dissected proximally as well as distally and medially to allow for freeing of all entrapped and thickened scar tissue from the extensor retinaculum. The superficial nerves were also released. While the nerve was exposed, a steroid was injected along the course of the medial dorsal cutaneous nerve as well as its branches. Prior to wound closure, the wound was copiously irrigated with sterile saline. The incision site was reapproximated without subcutaneous tissue in order to further entrap the nerve. The reapproximation was straight to the skin with simple interrupted sutures with 4-0 Prolene. The remainder of the local was injected subcutaneously at this point. The incision site was then dressed with Adaptic, 4x4s, Kerlix, Cl wrap, and a postop shoe. The patient tolerated the procedure and anesthesia well. The patient was transferred to the postop recovery with vital signs stable and vascular status intact. The patient is monitored there for a short period of time before being sent home with the following written and oral instructions. 1. Keep the dressing clean, dry, and intact. 2. The patient is to remain partial weightbearing in a postop shoe and to avoid excessive ambulation to be seen in the office. 3. The patient is given the office number ensure to contact us if any problems should arise. Dictated by Casper Felder DPM S YOAN Perez (Charley)/ADALGISA /[id number]
[2018-08-16 09:05] VITALS: BP 104/66
== END | disposition home or self-care (01) ==
LOC: OR 05:00
PROVIDERS: ATTEND Podiatrist Foot & Ankle Surgery
DX: G57.32 Lesion of lateral popliteal nerve, left lower limb (principal); Z01.810 Encounter for preprocedural cardiovascular examination
CPT/HCPCS: 64708; 93005; J0690; J1100; J1885; J2001; J2405; J2704